=== PATIENT | female | born 1940 | race Caucasian/White ===

== ENCOUNTER 2016-12-25 18:53 | Emergency (ER) | payer OTHER ==
[2016-12-25 19:00] VITALS: RESP 16
[2016-12-25 19:11] LABS: COLOR RED; LEUKOCYTE ESTERASE,URINE 3+ (NEGATIVE); NITRITE,URINE NEGATIVE (NEGATIVE)
--- NOTE | 2016-12-25 19:11 | EDPHY ---
H & P Time Seen by Provider: 12/25/16 19:03 HPI/ROS: CHIEF COMPLAINT: Hematuria HISTORY OF PRESENT ILLNESS: This patient is a 76 year old female who presents to the Emergency Department complaining of acute onset hematuria beginning today. She reports associated dysuria severity 5/10 with radiation to her lower back. She also complains of urinary frequency worsening over the course of the day. She reports one prior UTI last year that presented similarly. No history of kidney stones. REVIEW OF SYSTEMS: Constitutional: No fever, no chills Eyes: No visual changes ENT: No sore throat Respiratory: No cough, no shortness of breath Cardiac: No chest pain Gastrointestinal: No nausea, no vomiting, no abdominal pain Genitourinary: As in HPI Musculoskeletal: No leg pain or swelling Skin: No rash Neurological: No headache, no numbness, no weakness Psychiatric: No depression Past Medical/Surgical History: Denies Social History: ; at bedside. Smoking Status: Never smoked Physical Exam: General Appearance: Alert, no distress Eyes: Pupils equal and round, no conjunctival pallor ENT, Mouth: Mucous membranes moist Neck: Normal inspection Gastrointestinal: Abdomen is soft and non- tender Neurological: A&O, nonfocal exam Skin: Warm and dry, no rash Extremities: normal inspection Psychiatric: Mood and affect normal Constitutional: Initial Vital Signs Temperature (C) 36.6 C 12/25/16 18:58 Heart Rate 76 12/25/16 18:58 Respiratory Rate 16 12/25/16 18:58 Blood Pressure 132/94 H 12/25/16 18:58 O2 Sat (%) 97 12/25/16 18:58 O2 Delivery Mode Room Air Allergies/Adverse Reactions: morphine Allergy (Mild, Verified 03/18/11 04:54) Other-Enter Comments lamotrigine [From Lamictal] Allergy (Verified 03/16/11 14:34) Other-Enter Comments levetiracetam [From Keppra] Allergy (Verified 03/16/11 14:34) Other-Enter Comments tramadol HCl [From Ultram] Allergy (Verified 03/16/11 14:45) Other-Enter Comments CATS Allergy (Severe, Uncoded 03/16/11 14:35) Other-Enter Comments ENVIRONMENTAL Allergy (Uncoded 03/16/11 14:36) Other-Enter Comments SOME TAPES Allergy (Uncoded 03/16/11 14:40) Other-Enter Comments Home Medications: Medication Instructions Recorded Cholecalciferol Vit D3 [Vitamin D3 1,000 units PO DAILY 07/04/15 (*)] Cholecalciferol Vit D3 [Vitamin D3 2,000 units PO DAILY 07/04/15 2000 units] Diltiazem Cd [Cardizem ER 120 MG 120 mg PO DAILY PRN 07/04/15 (*)] Herbals/Supplements -Info Only 1 ea PO DAILY 07/04/15 Ibuprofen [Motrin (*)] 400 mg PO BID PRN 07/04/15 Multivitamins W-Minerals [Thera M 1 each PO DAILY 07/04/15 Plus Tablet (*)] Tears/Hypromellose [Natural 1 - 2 drops EACHEYE PRN PRN 07/04/15 Balance] Diazepam [Valium] 2.5 - 5 mg PO HS PRN #15 tab 07/06/15 Gabapentin [Neurontin 300 MG (*)] 300 mg PO TID #90 cap 07/06/15 Cephalexin [Keflex] 500 mg PO TID #15 cap 02/15/16 Phenazopyridine HCl [Pyridium] 200 mg PO TID #6 tab 02/15/16 Cephalexin [Keflex (*)] 500 mg PO QID #20 cap 12/25/16 Medical Decision Making ED Course/Re-evaluation: This 76-year-old female presents with acute hematuria, dysuria, and urinary frequency beginning today. While she does report some lower back pain, there is no flank tenderness on exam. She denies history of kidney stones. She is afebrile and denies fever or chills. No evidence of pyelo or kidney stones. Will proceed with UA. UA is positive for UTI. I discussed UA results with the patient. She will be discharged home on course of Keflex. Urine cx sent. She is given customary return precautions and will be discharged home in good condition. Differential Diagnosis: includes though not limited to kidney stone, pyelonephritis, cystitis, tumor. - Data Points Microbiology Results: MICROBIOLOGY 12/25/16 19:00 Urine,Clean Catch Urine Culture - Final Escherichia Coli Medications Given: Discontinued Medications Cephalexin HCl (Keflex) 500 mg PO EDNOW ONE PRN Reason: Protocol Stop: 12/25/16 19:27 Last Admin: 12/25/16 19:44 Dose: 500 mg Departure - Departure Disposition: Home, Routine, Self-Care Clinical Impression: Urinary tract infection Qualifiers: Urinary tract infection type: acute cystitis Hematuria presence: with hematuria Qualified Code(s): N30.01 - Acute cystitis with hematuria Condition: Good Instructions: Urinary Tract Infection in Women (ED) Additional Instructions: 1. Take the full course of Keflex as prescribed. 2. We have sent your urine for cultures. We will call you if you need to change antibiotics after we receive the results. If you do not hear from us within 48- hours, you can feel free to call us for the results. 3. Return to the Emergency Department if you experience worsening back pain, increased blood in your urine, fever or chills, weakness, or other serious concerns. Referrals: Ramya Mei MD [Primary Care Provider] - As per Instructions Prescriptions: Cephalexin [Keflex (*)] 500 mg PO QID #20 cap Report Scribed for: Yamile Velásquez Report Scribed by: Nikky Acuña Date of Report: 12/25/16 Time of Report: 19:08 Physician Review and Approval Statement: 12/25/16 19:08 Portions of this note were transcribed by a medical data analyst. I personally performed a history, physical exam, medical decision making, and confirmed accuracy of information the transcribed note.
[2016-12-25 19:17] LABS: BACTERIA TRACE /hpf (NONE SEEN); MUCUS TRACE /lpf (NONE-1+); RBC,URINE 50-182 /hpf (0-3); WBC,URINE 50-182 /hpf (0-3)
[2016-12-25] MEDS ORDERED: CEPHALEXIN 500 MG CAP PO ONE (19:26)
[2016-12-25 19:46] VITALS: BP 128/86; PULSE 74; TEMP 98.2; O2SAT 96
== END 2016-12-25 19:46 | disposition home or self-care (01) ==
DX: N30.01 Acute cystitis with hematuria (principal); B96.29 Other Escherichia coli [E. coli] as the cause of diseases classified elsewhere

== ENCOUNTER → 2017-02-01 | Outpatient (CLI) | payer OTHER | LOC: FIMAGING 09:21 | PROVIDERS: ATTEND Internal Medicine | DX: Z12.31 Encounter for screening mammogram for malignant neoplasm of breast (principal); Z85.3 Personal history of malignant neoplasm of breast | CPT/HCPCS: G0202-52 ==